=== PATIENT | male | born 1995 | race Caucasian/White ===

== ENCOUNTER 2021-04-07 21:42 | Emergency (ER) | payer SELFPAY ==
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
[2021-04-08 00:39] VITALS: TEMP 98.6
[2021-04-08 00:40] VITALS: O2SAT 100
[2021-04-08 00:41] VITALS: BP 129/78
== END 2021-04-08 00:03 | disposition home or self-care (01) ==
LOC: ER 21:42
PROC: 0JQ00ZZ Repair Scalp Subcutaneous Tissue and Fascia, Open Approach (ICD-10-PCS; principal; 2021-04-08)
DX: S01.01XA Laceration without foreign body of scalp, initial encounter (principal); V49.9XXA Car occupant (driver) (passenger) injured in unspecified traffic accident, initial encounter
CPT/HCPCS: 99283

== ENCOUNTER 2021-04-10 12:03 | Emergency (ER) | payer SELFPAY ==
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
[2021-04-10 14:22] VITALS: TEMP 98.5
[2021-04-10 14:23] VITALS: BP 127/81; O2SAT 100
== END 2021-04-10 14:07 | disposition home or self-care (01) ==
LOC: ER 12:03
DX: S80.02XA Contusion of left knee, initial encounter (principal); M25.551 Pain in right hip; V49.40XA Driver injured in collision with unspecified motor vehicles in traffic accident, initial encounter
CPT/HCPCS: 72131; 72192; 99283